=== PATIENT | female | born 1980 | race Caucasian/White ===

== ENCOUNTER → 2016-03-12 | Outpatient (CLI) | payer OTHER ==
[2016-03-12 09:57] LABS: PROGESTERONE 21.5 NG/ML
[2016-03-12 09:58] LABS: LUTEINIZING HORMONE 4.3 mIU/mL
[2016-03-12 09:59] LABS: FOLLICLE STIMULATING HORMONE 3.8 mIU/mL
[2016-03-12 10:02] LABS: HCG, SERUM QUANTITATIVE < 1.0 MIU/ML
== END | disposition home or self-care (01) ==
LOC: M LAB 08:35
PROVIDERS: ATTEND Obstetrics & Gynecology Reproductive Endocrinology
DX: E28.9 Ovarian dysfunction, unspecified (principal)

== ENCOUNTER → 2016-05-05 | Outpatient (CLI) | payer OTHER ==
[2016-05-05 10:52] LABS: PROGESTERONE 42.8 NG/ML
[2016-05-05 10:53] LABS: ESTRADIOL 157.6 PG/ML
== END ==
LOC: M LAB 06:50
PROVIDERS: ATTEND Obstetrics & Gynecology Reproductive Endocrinology
DX: N97.9 Female infertility, unspecified (principal)

== ENCOUNTER → 2016-05-09 | Outpatient (CLI) | payer OTHER ==
[2016-05-09 09:19] LABS: PROGESTERONE 48.9 NG/ML
== END ==
LOC: M LAB 07:10
PROVIDERS: ATTEND Obstetrics & Gynecology Reproductive Endocrinology
DX: N97.9 Female infertility, unspecified (principal)

== ENCOUNTER → 2016-07-25 | Outpatient (CLI) | payer OTHER | LOC: M LAB 07:20 | PROVIDERS: ATTEND Obstetrics & Gynecology Reproductive Endocrinology | DX: N97.9 Female infertility, unspecified (principal) ==

== ENCOUNTER 2016-08-16 20:28 | Emergency (ER) | payer OTHER ==
[~2016-08-16] VITALS: Ht 165.1 cm; Wt 63.5 kg
[2016-08-16] MEDS ORDERED: ASPI81TA85 PO (20:50)
[2016-08-16] MEDS ORDERED: DICL10TA PO (20:50)
[2016-08-16] MEDS ORDERED: LEVO100T5 PO (20:50)
[2016-08-16] MEDS ORDERED: VITA200016 PO (20:50)
[2016-08-16] MEDS ORDERED: ESTR1TAB PV (20:50)
[2016-08-16] MEDS ORDERED: NALT50TA4 PO (20:50)
[2016-08-16] MEDS ORDERED: PRED5TA PO (20:50)
[2016-08-16] MEDS ORDERED: COLA100C3 PO (20:50)
[2016-08-16] MEDS ORDERED: PROG50IN5 IM (20:50)
[2016-08-16] MEDS ORDERED: LOVE1INJ2 SC (20:50)
[2016-08-16] MEDS ORDERED: FISH100049 PO (20:50)
[2016-08-16] MEDS ORDERED: MELA0.02 PO (20:50)
[2016-08-16] MEDS ORDERED: ENDO100S VA (20:50)
[2016-08-16] MEDS ORDERED: PREN1TAB11 PO (20:50)
[2016-08-16 21:57] LABS: INR 0.85
[2016-08-16 21:59] LABS: BASO # 0.1 K/mm3 (0.0-0.2); BASO % 0.7 % (0.0-1.0); EOS # 0.2 K/mm3 (0.0-0.50); EOS % 1.5 % (0.0-3.0); LARGE UNSTAINED CELL # 0.3 K/mm3 (0.0-0.4); LARGE UNSTAINED CELL % 2.2 % (0.0-4.0); LYMPH % 23.2 % (24.0-44.0); MEAN CORPUSCULAR HEMOGLOBIN 33.7 pg (27.0-33.0); MEAN CORPUSCULAR HGB CONC 34.4 g/dl (32.0-36.5); MEAN CORPUSCULAR VOLUME 98.1 fl (80.0-96.0); MONO # 0.7 K/mm3 (0.0-0.8); MONO % 5.1 % (0.0-5.0); NEUTROPHILS # 8.6 K/mm3 (1.8-7.7); NEUTROPHILS % 67.5 % (36.0-66.0); PLATELET COUNT, AUTOMATED 215 k/mm3 (150-450); WHITE BLOOD COUNT 12.8 K/mm3 (4.0-10.0)
[2016-08-16 22:33] LABS: ANION GAP 7 MEQ/L (8-16); BLOOD UREA NITROGEN 12 MG/DL (7-18); CALCIUM LEVEL 8.8 MG/DL (8.5-10.1); CARBON DIOXIDE LEVEL 28 MEQ/L (21-32); CHLORIDE LEVEL 105 MEQ/L (98-107); CREATININE FOR GFR 0.66 MG/DL (0.55-1.02); GLOMERULAR FILTRATION RATE > 60.0 (>60); GLUCOSE, FASTING 85 MG/DL (70-105); HCG, SERUM QUANTITATIVE 131032 MIU/ML; SODIUM LEVEL 140 MEQ/L (136-145)
--- NOTE | 2016-08-16 23:20 | REPUSA ---
CLINICAL HISTORY: Vaginal bleeding. TECHNIQUE: Realtime sonographic images were obtained in multiple projections. COMMENTS: A triplet live, intrauterine was identified utilizing transabdominal imaging technique. T wo gestational sac seen in endometrium, Twin A has its own sac, CRL measures 7 weeks 1 day. Twin B a nd C are sharing a sac, no amnion is seen with the sac most compatible with mono mono twins. Twin B is measuring 7 weeks 3 days and Twin C is measuring 7 weeks 2 days. Trace free fluid is seen in the cul-de-sac. No subchorionic hemorrhage was identified. Evaluation o f the maternal adnexal and cul-de-sac regions revealed no abnormalities. Based on today's examinatio n, the estimated date of delivery is 04/03/2017. Although a complete anatomical survey is not possible at this gestational age, no gross anomali es were identified. Fetus A: An intrauterine is identified with crown/rump length of 1.0 cm which corresponds to the iván n estimated gestational age of 07 weeks 1 day. CRL ratio is 49%. heart motion is present, 155 beats per minute. Fetus B: An intrauterine is identified with crown/rump length of 1.2 cm which corresponds to the iván n estimated gestational age of 07 weeks 3 days. CRL ratio is 73%. heart motion is present, 15 2 beats per minute. Fetus C: An intrauterine is identified with crown/rump length of 1.1 cm which corresponds to the iván n estimated gestational age of 07 weeks 2 days. CRL ratio is 61%. heart motion is present, 15 5 beats per minute. IMPRESSION: A triplet live, intrauterine as above. Based on today's examination, the estimated date o f delivery is 04/03/2017. Although a complete anatomical survey is not possible at this gestational age, no gross anomalies were identified. A repeat scan at 19-20 weeks for a detailed anatomica l survey is recommended. Thank you for your kind referral of this patient. We appreciate the opportunity to participate in th is patient's care.
[2016-08-17] MEDS ORDERED: ACETAMINOPHEN 325 MG TAB PO ONE
[2016-08-17 00:32] VITALS: BP 117/72
== END 2016-08-17 00:35 | disposition home or self-care (01) ==
LOC: M ED 21:36
DX: O20.0 Threatened abortion (principal); O30.1 Triplet pregnancy; O99.281 Endocrine, nutritional and metabolic diseases complicating pregnancy, first trimester; E03.9 Hypothyroidism, unspecified; Z3A.01 Less than 8 weeks gestation of pregnancy; Z88.5 Allergy status to narcotic agent; Z88.1 Allergy status to other antibiotic agents; Z79.899 Other long term (current) drug therapy; Z79.82 Long term (current) use of aspirin; Z79.52 Long term (current) use of systemic steroids

== ENCOUNTER 2016-10-16 12:52 | Emergency (ER) | payer OTHER ==
[~2016-10-16] VITALS: Ht 165.1 cm; Wt 67.0 kg
[~2016-10-16 12:52] MED LIST: ASPI81TA85 PO; COLA100C5 PO; DICL10TA PO; ENDO100S VA; ESTR1TAB PV; FISH100049 PO; LEVO100T5 PO; LOVE1INJ2 SC; MELA3TAB49 PO; NALT50TA4 PO; PRED5TA PO; PREN1TAB11 PO; PROG50IN5 IM; VITA200016 PO
[2016-10-16] MEDS ORDERED: MI-ASUS (13:04)
[2016-10-16] MEDS ORDERED: PROM25TA (13:04)
[2016-10-16] MEDS ORDERED: ACETAMINOPHEN TAB 650MG DOSE (2X325MG) PO ONE (15:15)
[2016-10-16 16:01] LABS: ANION GAP 8 MEQ/L (8-16); BLOOD UREA NITROGEN 7 MG/DL (7-18); CALCIUM LEVEL 8.9 MG/DL (8.5-10.1); CARBON DIOXIDE LEVEL 26 MEQ/L (21-32); CHLORIDE LEVEL 106 MEQ/L (98-107); CREATININE FOR GFR 0.39 MG/DL (0.55-1.02); GLOMERULAR FILTRATION RATE > 60.0 (>60); GLUCOSE, FASTING 77 MG/DL (70-105); POTASSIUM SERUM 4.3 MEQ/L (3.5-5.1); SODIUM LEVEL 140 MEQ/L (136-145)
[2016-10-16 16:12] LABS: MEAN CORPUSCULAR HEMOGLOBIN 33.5 pg (27.0-33.0); MEAN CORPUSCULAR HGB CONC 33.8 g/dl (32.0-36.5); MEAN CORPUSCULAR VOLUME 99.1 fl (80.0-96.0); RED CELL DISTRIBUTION WIDTH 13.3 % (11.5-14.5)
[2016-10-16 17:43] VITALS: BP 125/69
--- NOTE | 2016-10-16 18:41 | REP ---
TRIPLET OB ULTRASOUND: Real-time sonographic evaluation of the gravid uterus performed utilizing transabdominal technique. There is a living diamniotic twin gestation with a winchester gestation, all living with estimated gestational age of 15 weeks 6 days based on LMP and EDC 04/03/2017. The winchester placenta is anterior and grade 0. The diamniotic placenta is posterior and grade 0 with no previa or abruption. The cervix is closed and measures 3.3 cm in length. Each fetus demonstrates appropriate growth. FETUS A: BPD 34 mm = 16 weeks 3 days, 70th percentile HC 126 mm = 16 weeks 2 days, 67th percentile AC 99 mm = 16 weeks 0 days, 52nd percentile FL 21 mm = 16 weeks 3 days, 65th percentile HC/AC ratio 1.27 within normal range. Estimated weight 148 grams, 56th percentile. heart rate 157 beats per minute. position is vertex on maternal left side. Amniotic fluid subjectively normal around fetus A. FETUS B: BPD 35 mm = 16 weeks 5 days, 83rd percentile HC 129 mm = 16 weeks 4 days, 75th percentile AC 105 mm = 16 weeks 3 days, 64th percentile FL 20 mm = 16 weeks 0 days, 53rd percentile HC/AC ratio 1.23 within normal range. Estimated weight 150 grams, 59th percentile. heart rate 153 beats per minute. position is transverse on the maternal right side. Amniotic fluid subjectively normal for fetus B. FETUS C: BPD 35 mm = 16 weeks 6 days, 85th percentile HC 133 mm = 16 weeks 6 days, 86th percentile AC 111 mm = 16 weeks 6 days, 77th percentile FL 22 mm = 16 weeks 3 days, 67th percentile HC/AC ratio 1.2 within normal range. Estimated weight 166 grams, 79th percentile. heart rate 150 beats per minute. position transverse in the maternal midline. Amniotic fluid around fetus C subjectively normal. Signed by Flo Carranza MD 10/17/2016 05:05 P
[2017-01-11] MEDS ORDERED: ZANTTAB PO (21:01)
== END 2016-10-16 18:01 | disposition home or self-care (01) ==
LOC: M ED 12:52
DX: O26.892 Other specified pregnancy related conditions, second trimester (principal); R10.2 Pelvic and perineal pain; O30.102 Triplet pregnancy, unspecified number of placenta and unspecified number of amniotic sacs, second trimester; O99.352 Diseases of the nervous system complicating pregnancy, second trimester; G43.909 Migraine, unspecified, not intractable, without status migrainosus; O99.282 Endocrine, nutritional and metabolic diseases complicating pregnancy, second trimester; E07.9 Disorder of thyroid, unspecified; Z88.5 Allergy status to narcotic agent; Z88.1 Allergy status to other antibiotic agents; Z3A.16 16 weeks gestation of pregnancy

== ENCOUNTER 2016-12-24 15:15 | Outpatient (CLI) | payer OTHER ==
[~2016-12-24] VITALS: Ht 165.1 cm; Wt 73.8 kg
[~2016-12-24 15:15] MED LIST changes: +MI-ASUS; +PROM25TA
[2016-12-24 15:27] VITALS: BP 124/75
[2016-12-24] MEDS ORDERED: ASPI81CH30 PO (15:37)
[2016-12-24] MEDS ORDERED: MAGN500T5 PO (15:38)
[2016-12-24] MEDS ORDERED: MACR100C43 PO (15:40)
[2016-12-24] MEDS: BETAMETHASONE SOLUSPAN 6MG/ML INJ 5ML (J0702) IM SCH (17:13)
[2016-12-24 18:22] VITALS: BP 123/82
--- NOTE | 2016-12-24 19:35 | HPE ---
DATE OF ADMISSION: 12/24/2016 This lady is a 36-year-old 4, para 1, abortio 2, EDC 04/03/2017. She is at 25 and 3 weeks of gestation. Has a history of manoj every 15 minutes, mild in nature and she was told by center to come to [facility] labor and delivery. Risk factors are that she is a triplet gestation, mono/di twins. She has had a subchorionic hemorrhage early on in . She is hypothyroid. She is an advanced maternal age at 36. She suffers from migraines and a history of deep venous thrombosis (DVT). She is HPV positive. PAST HISTORY: March 2004 at 38 weeks, 3.2 kg male, spontaneous vaginal delivery with epidural at [facility]. 2007. Spontaneous 6 weeks. 2017. Spontaneous at 5 weeks. LABS: Show TSH was normal. HIV negative. Hepatitis B negative. A positive. Rubella immune. Gonorrhea and chlamydia are negative. Urine was negative. HPV was positive. Pap was normal. RPR was negative. Blood pressure 124/75, respirations 20, pulse 88, temperature is 98.5, and she has no pain. Urine is 10.15, pH 6, trace of protein, the rest is negative. She had initial ultrasound 2 weeks ago at [facility] and her cervical length was 2.6. She had a transvaginal ultrasound today and her cervix was 1.2. Digitally it was not open. It was closed and there was no funneling. Cursory examination of the triplet : AFIs were normal times three and the movements of all three babies were within normal limits. The plan of management here is to hydrate her to advance her some steroids for lung enhancement maturity. Precautions were given. Monitor the patient. Repeat the ultrasound in the morning for cervical length. Continue the thyroid medication. Continue the ASA 81 mg because of her history of deep venous thrombosis (DVT). We consulted perinates, Dr. Bello at the present time because not in any contractions. Neuro prophylaxis with mag-sulfate is not indicated, however, if she does start to contract, neuro prophylaxis would be commenced and transfer to the center would continue. We, as a courtesy told our person that we have triplets at 25 and 3 weeks of gestation. The patient was started on sequentials. Mother expressed understanding of the plan of care. Confirmed with Dr. Bello and we will repeat her cervical length in the morning and conclude the steroid 24 hour service and will send her home. She has an appointment next week with the center. The rest of the examination is unremarkable. She is normocephalic, atraumatic. Neck: Full range of motion. Pupils equal and reactive to light. Distal pulses symmetric. No evidence of DVT, pulmonary embolism (PE) or superficial phlebitis. Thyroid is midline. Trachea is midline, nontender. No bruits noted. Lungs are clear to bases. No wheezes or rhonchi. No costovertebral angle (CVA) tenderness. Symphysis fundus height is appropriate for triplets and four quadrant bowel sounds are noted. She has no rashes, lesions or pruritus. No arthralgia, myalgia. No complaints of cough, wheezes, shortness of breath or dyspnea on exertion. No chest pain. Not bleeding. Neuro complete. No incontinence, urgency or frequency. No nausea, vomiting, diarrhea or constipation. No diabetic, heat or cold sensitivity. RN INTERVENTIONAL HISTORY: She is HPV positive, but pap was normal. PAST MEDICAL HISTORY: Thyroid, hypothyroid. PAST SURGICAL HISTORY: Unremarkable. FAMILY HISTORY: Noncontributory. SOCIAL HISTORY: She does not smoke, drink, abuse drugs. No domestic violence. She is to a soldier. Presently she has a urinary tract infection for which she is being treated with Macrobid and she will continue that until completion and followup with a test of cure. In summary we have a 36-year-old triplet patient with irregular contractions and shortening of her cervix with urinary tract infection.
[2016-12-24] MEDS ORDERED: ASPIRIN 81 MG ENTERIC TAB PO ONE (20:20)
[2016-12-24] MEDS ORDERED: NITROFURANTOIN 50 MG CAP PO SCH (21:00)
[2016-12-24 21:51] VITALS: BP 120/66
[2016-12-25] VITALS (8 sets, daily range): BP systolic 105–127; BP diastolic 56–76
[2016-12-25] MEDS ORDERED: LEVOTHYROXINE 112MCG TABLET (0.112MG) PO SCH (06:00)
[2016-12-25] MEDS ORDERED: NITROFURANTOIN (MACROBID) 100 MG CAP PO SCH (09:00)
[2016-12-25] MEDS ORDERED: ASPIRIN 81 MG ENTERIC TAB PO SCH (09:00)
--- NOTE | 2016-12-25 10:38 | REP ---
OB ULTRASOUND, MULTIPLE GESTATION: Real-time sonographic evaluation of the gravid uterus performed utilizing transabdominal and endovaginal technique. There is a living intrauterine triplet gestation. Cervix is closed and measures 2 cm in length on endovaginal images. This is a triamniotic dichorionic gestation. Two placentas are seen, a single placenta for fetus A and a shared placenta for fetus B and C. There is no abruption. There is normal amniotic fluid present, with the deepest pocket of fluid around fetus A 2.4 cm, fetus B 5.4 cm and fetus C 2.1 cm. Fetus A is on the maternal left side, breech position; fetus B maternal right side, breech position; and fetus C in the midline superiorly and oblique. heart rate fetus A 144 beats per minute, fetus B 140 beats per minute and fetus C 145 beats per minute. Please note cervical length is 1.8 cm with Valsalva maneuver. There is no evidence of cervical funneling of the internal os. Signed by Flo Carranza MD 12/25/2016 05:33 P
[2016-12-25] MEDS: BETAMETHASONE SOLUSPAN 6MG/ML INJ 5ML (J0702) IM SCH (17:18)
[2017-01-11] MEDS ORDERED: ZANTTAB PO (21:01)
== END 2016-12-25 19:40 | disposition home or self-care (01) ==
LOC: M LDO 15:15
PROVIDERS: ATTEND Obstetrics & Gynecology
DX: O26.879 Cervical shortening, unspecified trimester (principal); O23.42 Unspecified infection of urinary tract in pregnancy, second trimester; O30.112 Triplet pregnancy with two or more monochorionic fetuses, second trimester; O09.511 Supervision of elderly primigravida, first trimester; O47.02 False labor before 37 completed weeks of gestation, second trimester; O99.89 Other specified diseases and conditions complicating pregnancy, childbirth and the puerperium; O99.352 Diseases of the nervous system complicating pregnancy, second trimester; O99.282 Endocrine, nutritional and metabolic diseases complicating pregnancy, second trimester; O20.8 Other hemorrhage in early pregnancy; Z79.82 Long term (current) use of aspirin; Z79.2 Long term (current) use of antibiotics; Z79.899 Other long term (current) drug therapy; Z3A.25 25 weeks gestation of pregnancy
CPT/HCPCS: 59025; 76817; 96372; J0702

== ENCOUNTER 2017-01-31 19:29 | Outpatient (CLI) | payer OTHER ==
[~2017-01-31 19:29] MED LIST changes: +ASPI81CH30 PO; +MACR100C43 PO; +MAGN500T5 PO; +ZANTTAB PO
== END 2017-01-31 20:30 | disposition home or self-care (01) ==
LOC: M LDO 19:29
PROVIDERS: ATTEND Obstetrics & Gynecology
DX: O36.8191 Decreased fetal movements, unspecified trimester, fetus 1 (principal); O62.0 Primary inadequate contractions; O12.03 Gestational edema, third trimester; O30.103 Triplet pregnancy, unspecified number of placenta and unspecified number of amniotic sacs, third trimester; Z3A.31 31 weeks gestation of pregnancy; Z79.82 Long term (current) use of aspirin; Z79.899 Other long term (current) drug therapy; Z88.5 Allergy status to narcotic agent; Z88.0 Allergy status to penicillin